=== PATIENT | female | born 2000 | race Two or more races ===

== ENCOUNTER 2025-05-26 16:05 | Inpatient (IN) | payer OTHER ==
[~2025-05-26] VITALS: Ht 160 cm; Wt 76.2 kg
[2025-05-26] MEDS ORDERED: ACETAMINOPHEN ES 500 MG TABLET ONE (17:09)
[2025-05-26] MEDS: ACETAMINOPHEN ES 500 MG TABLET PO ONE (17:21)
[2025-05-26] MEDS: IV NS 0.9% 1,000 ML BAG IV ONE ×2 (17:21→18:00)
[2025-05-26 17:44] LABS: CALCIUM, SERUM 9.0 mg/dL (8.5-10.1); CREATININE 0.7 mg/dL (0.6-1.3); SODIUM SERUM 136.0 mmol/L (136-145); UREA NITROGEN, BLOOD 13.0 mg/dL (7-18)
[2025-05-26 17:45] LABS: PLATELET COUNT (AUTO) 196 K/uL (150-450); RED BLOOD CELL COUNT(AUTO) 4.20 MIL/uL (4.0-5.2); RED CELL DISTRIBUTION WIDTH 16.1 % (11.5-15.0); WHITE BLOOD COUNT (AUTO) 12.0 K/uL (4.3-11.0)
[2025-05-26 17:51] LABS: ASPARTATE AMINOTRANSFERASE 10.0 U/L (15-37); TOTAL PROTEIN, SERUM 8.2 g/dL (6.4-8.2)
[2025-05-26 17:53] LABS: LACTIC ACID 1.4 mmol/L (0.4-2.0)
[2025-05-26] MEDS: CLINDAMYCIN 600 MG in IV D5W 100 ML IV ONE (17:59)
[2025-05-26 18:47] LABS: INR 1.07 (0.91-1.10)
[2025-05-26 21:00] VITALS: BP 112/63; TEMP 98.8; O2SAT 100
[2025-05-26] MEDS ORDERED: ONDANSETRON HCL/PF 4 MG/2 ML VIAL IVP PRN (22:00)
[2025-05-26] MEDS ORDERED: MAGNESIUM HYDROXIDE 30 ML UDC PO PRN (22:00)
[2025-05-26] MEDS ORDERED: MAG HYDROX/AL HYDROX/SIMETH 30 ML UDC PO PRN (22:00)
[2025-05-26] MEDS: CEFTRIAXONE 1GM BAG (ER ONLY) 50 ML IV ONE (22:41)
[2025-05-26] MEDS: IV NS 0.9% 1,000 ML IV SCH (22:43)
[2025-05-26] MEDS: CEFTRIAXONE 1 G in IV D5W 50 ML IV SCH (22:45)
[2025-05-26] MEDS ORDERED: CLINDAMYCIN IV RTU IN D5W 600 MG/50 ML PIGGYBACK IV SCH (23:00)
[2025-05-26] MEDS ORDERED: TEMAZEPAM 7.5 MG CAPSULE PO PRN (23:00)
[2025-05-27] VITALS: BP 108/65; TEMP 100; O2SAT 98
[2025-05-27] MEDS ORDERED: CLINDAMYCIN IV RTU IN D5W 50 ML ONE (00:22)
[2025-05-27] MEDS: ACETAMINOPHEN 325 MG TABLET PO PRN (00:34)
[2025-05-27 01:46] LABS: APPEARANCE,URINE SLIGHTLY CLOUDY (CLEAR); BLOOD, URINE 3+ Ery/uL (NEGATIVE); LEUKOCYTE ESTERASE ,URINE TRACE (NEGATIVE); NITRITE, URINE NEGATIVE (NEGATIVE); UGLUCOSE NEGATIVE (NEGATIVE)
[2025-05-27] MEDS ORDERED: CLINDAMYCIN IV RTU IN D5W 600 MG/50 ML PIGGYBACK IV SCH (02:00)
[2025-05-27] MEDS ORDERED: CLINDAMYCIN PHOSPHATE IV 600 MG/4 ML VIAL IV SCH (02:00)
[2025-05-27 02:15] LABS: ADD URINE CULTURE YES
[2025-05-27 02:16] LABS: SQUAMOUS EPITHELIAL CELL,UR Many /HPF (None Seen)
[2025-05-27] MEDS: CLINDAMYCIN 600 MG in IV NS 0.9% 46 ML IV SCH ×2 (02:25→12:52)
[2025-05-27 04:00] VITALS: BP 112/68; TEMP 99.1; O2SAT 100
[2025-05-27] MEDS ORDERED: CLINDAMYCIN 600 MG in IV NS 0.9% 46 ML IV SCH (04:00)
[2025-05-27] MEDS: PANTOPRAZOLE 40 MG TABLET.DR PO SCH (07:45)
[2025-05-27 07:46] LABS: CALCIUM, SERUM 8.6 mg/dL (8.5-10.1); CREATININE 0.8 mg/dL (0.6-1.3); SODIUM SERUM 140.0 mmol/L (136-145); UREA NITROGEN, BLOOD 7.0 mg/dL (7-18)
[2025-05-27 07:48] LABS: PLATELET COUNT (AUTO) 262 K/uL (150-450); RED BLOOD CELL COUNT(AUTO) 4.05 MIL/uL (4.0-5.2); RED CELL DISTRIBUTION WIDTH 16.1 % (11.5-15.0); WHITE BLOOD COUNT (AUTO) 13.2 K/uL (4.3-11.0)
[2025-05-27 08:00] VITALS: BP 115/75; TEMP 98.6; O2SAT 100
[2025-05-27 08:02] LABS: IRON, SERUM 9.0 ug/dl (50-175)
[2025-05-27] MEDS ORDERED: DEXT5TAB15 PO (08:43)
[2025-05-27] MEDS: ERYTHROMYCIN BASE OPHTH 3.5 GM TUBE LEFTEYE SCH (11:22)
[2025-05-27 12:00] VITALS: BP 113/70; TEMP 98.1; O2SAT 100
[2025-05-27] MEDS: OFLOXACIN OTIC SOLN 5 ML BOTTLE EACH EAR SCH (14:53)
[2025-05-27 16:00] VITALS: BP 120/81; TEMP 98.4; O2SAT 100
[2025-05-27 20:00] VITALS: BP 111/72; TEMP 97.9; O2SAT 100
[2025-05-28] VITALS: BP 111/67; TEMP 97.9; O2SAT 100
[2025-05-28 04:00] VITALS: BP 138/75; TEMP 98.2; O2SAT 78
[2025-05-28 08:00] VITALS: BP 109/76; TEMP 98.1; O2SAT 99
[2025-05-28 12:00] VITALS: BP 109/76; TEMP 98.1; O2SAT 100
[2025-05-28] MEDS ORDERED: NAPROXEN 500 MG TABLET PO SCH (12:30)
[2025-05-28] MEDS: FLUTICASONE PROPIONATE 16 GM BOTTLE NS SCH (13:15)
[2025-05-28 16:38] VITALS: BP 113/77; TEMP 97.7; O2SAT 100
[2025-05-28] MEDS: NAPROXEN 250 MG TABLET PO SCH (17:08)
[2025-05-28 20:00] VITALS: BP 110/73; TEMP 99; O2SAT 100
[2025-05-28] MEDS: AZITHROMYCIN 250 MG TABLET PO SCH (21:57)
[2025-05-29 04:00] VITALS: BP_SYST 100; BP_SYST 105; BP_DIAS 73; BP_DIAS 80; TEMP 97.7; TEMP 98.4; O2SAT 96
[2025-05-29 08:00] VITALS: BP 118/70; TEMP 98.2; O2SAT 100
[2025-05-29 09:00] LABS: CALCIUM, SERUM 9.0 mg/dL (8.5-10.1); CREATININE 0.6 mg/dL (0.6-1.3); PHOSPHORUS 5.0 mg/dL (2.5-4.9); SODIUM SERUM 138.0 mmol/L (136-145); UREA NITROGEN, BLOOD 13.0 mg/dL (7-18)
[2025-05-29] MEDS ORDERED: FLUT16SP16 BNOSTRILS (11:32)
[2025-05-29] MEDS ORDERED: AMOX-430 PO (11:32)
[2025-05-29] MEDS ORDERED: IBUP-1953 PO (11:32)
[2025-05-29 12:00] VITALS: BP 118/70; TEMP 98.2; O2SAT 100
== END 2025-05-29 15:00 | disposition home or self-care (01) | DRG 720 ==
LOC: ER 16:12 → TELE1 20:13 → MEDSG1 05-27 08:15
PROVIDERS: ADMIT Registered Nurse Psychiatric/Mental Health; ATTEND Nurse Practitioner Acute Care
DX: A41.9 Sepsis, unspecified organism (principal); J15.69 Pneumonia due to other Gram-negative bacteria; Q60.0 Renal agenesis, unilateral; D50.9 Iron deficiency anemia, unspecified; F17.200 Nicotine dependence, unspecified, uncomplicated; E66.9 Obesity, unspecified; N39.0 Urinary tract infection, site not specified; F90.9 Attention-deficit hyperactivity disorder, unspecified type; Z20.822 Contact with and (suspected) exposure to COVID-19; Q51.28 Other and unspecified doubling of uterus; Z79.899 Other long term (current) drug therapy; B96.89 Other specified bacterial agents as the cause of diseases classified elsewhere; H10.32 Unspecified acute conjunctivitis, left eye; H66.93 Otitis media, unspecified, bilateral; J01.00 Acute maxillary sinusitis, unspecified; Z68.29 Body mass index [BMI] 29.0-29.9, adult; Z86.19 Personal history of other infectious and parasitic diseases; J06.9 Acute upper respiratory infection, unspecified; J01.20 Acute ethmoidal sinusitis, unspecified; J01.10 Acute frontal sinusitis, unspecified; J01.30 Acute sphenoidal sinusitis, unspecified; Z91.148 Patient's other noncompliance with medication regimen for other reason
CPT/HCPCS: 36415; 70486-TC; 71045-TC; 80048-TC; 80076-TC; 81001; 83540-TC; 83605-TC; 83690-TC; 83735-TC; 84100-TC; 84443-TC; 84702-TC; 85025-TC; 85730-TC; 86403-TC; 87040-TC; 87070-TC; 87086-TC; A4223; G0378; J0696; J3490; J7030; J7050; J7060

== ENCOUNTER 2025-08-02 15:55 | Emergency (ER) | payer OTHER ==
[~2025-08-02] VITALS: Ht 160 cm; Wt 71.7 kg
[~2025-08-02 15:55] MED LIST: AMOX-430 PO; DEXT5TAB15 PO; FLUT16SP16 BNOSTRILS; IBUP-1953 PO
[2025-08-02] MEDS: IV NS 0.9% 1,000 ML BAG IV ONE (16:30)
[2025-08-02 16:43] LABS: PLATELET COUNT (AUTO) 214 K/uL (150-450); RED BLOOD CELL COUNT(AUTO) 4.31 MIL/uL (4.0-5.2); RED CELL DISTRIBUTION WIDTH 16.5 % (11.5-15.0); WHITE BLOOD COUNT (AUTO) 4.3 K/uL (4.3-11.0)
[2025-08-02 16:56] LABS: ASPARTATE AMINOTRANSFERASE 14.0 U/L (15-37); CALCIUM, SERUM 8.7 mg/dL (8.5-10.1); CREATININE 1.2 mg/dL (0.6-1.3); SODIUM SERUM 142.0 mmol/L (136-145); TOTAL PROTEIN, SERUM 8.5 g/dL (6.4-8.2); UREA NITROGEN, BLOOD 16.0 mg/dL (7-18)
[2025-08-02 16:58] LABS: INR 1.16 (0.91-1.10)
[2025-08-02 16:59] LABS: LACTIC ACID 0.9 mmol/L (0.4-2.0)
[2025-08-02 17:32] LABS: LYMPHOCYTES % (MANUAL) 15 % (16-48); MONOCYTES % (MANUAL) 11 % (0-11.0); NEUTROPHILS % (MANUAL) 74 (42-76); PLATELET ESTIMATE ADEQUATE
[2025-08-02] MEDS ORDERED: IBUPROFEN 400 MG TABLET ONE (17:40)
[2025-08-02] MEDS: IBUPROFEN 400 MG TABLET PO ONE (18:00)
[2025-08-02] MEDS ORDERED: ACETAMINOPHEN ES 500 MG TABLET ONE (18:24)
[2025-08-02] MEDS: ACETAMINOPHEN ES 500 MG TABLET PO ONE (18:30)
[2025-08-02 19:02] LABS: APPEARANCE,URINE CLEAR (CLEAR); BLOOD, URINE TRACE-INTA Ery/uL (NEGATIVE); LEUKOCYTE ESTERASE ,URINE TRACE (NEGATIVE); NITRITE, URINE NEGATIVE (NEGATIVE); UGLUCOSE NEGATIVE (NEGATIVE)
[2025-08-02 19:13] LABS: ADD URINE CULTURE YES
[2025-08-02 19:14] LABS: SQUAMOUS EPITHELIAL CELL,UR Many /HPF (None Seen)
[2025-08-02] MEDS ORDERED: SULF1TAB48 PO (19:38)
[2025-08-02] MEDS ORDERED: ONDA4TAB5 PO (19:38)
[2025-08-02] MEDS ORDERED: IBUP-1488 PO (19:38)
[2025-08-02] MEDS ORDERED: ACET-2030 PO (19:38)
[2025-08-02 19:57] VITALS: BP 115/71; TEMP 99.7; O2SAT 98
== END 2025-08-02 19:56 | disposition home or self-care (01) ==
LOC: ER 15:58
DX: J06.9 Acute upper respiratory infection, unspecified (principal); N39.0 Urinary tract infection, site not specified; F90.9 Attention-deficit hyperactivity disorder, unspecified type; B97.89 Other viral agents as the cause of diseases classified elsewhere; R00.2 Palpitations; Z79.899 Other long term (current) drug therapy; Z86.2 Personal history of diseases of the blood and blood-forming organs and certain disorders involving the immune mechanism
CPT/HCPCS: 99285; 96360; 96361; 71045; 93005; 84145; 85027; 80048; 87040 ×2; 87086; 83605; 80076; 85007; 81001; 36415; 85730; J7030 ×2

== ENCOUNTER 2025-09-16 00:29 | Emergency (ER) | payer OTHER ==
[~2025-09-16] VITALS: Ht 160 cm; Wt 72.6 kg
[~2025-09-16 00:29] MED LIST changes: +ACET-2030 PO; +IBUP-1488 PO; +ONDA4TAB5 PO; +SULF1TAB48 PO
[2025-09-16 02:09] LABS: ABG BASE EXCESS -2.8 mmol/L (-2.0-3.0); ABG OXYGEN SATURATION 61.3 % (94.0-98.0); ABG PCO2 36.7 mmHg (32.0-45.0); ABG PH 7.390 (7.350-7.450); ABG PO2 33.1 mmHg (83.0-108.0); ABG TOTAL HEMOGLOBIN 11.0 G/dL (12.0-16.0); FLOW, BLOOD GAS 0.00 L/min (0.00-30.00); FRACTIONATED INSPIRED OXYGEN 21.0 %; SITE, ABG RIGHT RADIAL
[2025-09-16 02:11] VITALS: BP 122/66; TEMP 98.4; O2SAT 95
== END 2025-09-16 02:11 | disposition home or self-care (01) ==
LOC: ER 01:06
DX: T59.91XA Toxic effect of unspecified gases, fumes and vapors, accidental (unintentional), initial encounter (principal); F90.9 Attention-deficit hyperactivity disorder, unspecified type; Y92.89 Other specified places as the place of occurrence of the external cause
CPT/HCPCS: 36600; 82803-TC